=== PATIENT | male | born 1965 | race Caucasian/White ===

== ENCOUNTER 2019-10-18 16:55 | Inpatient (IN) | payer OTHER ==
[2019-10-18 19:34] VITALS: BMI 29.5
--- NOTE | 2019-10-18 20:53 | HP ---
CIWA Score Nausea/Vomitin Muscle Tremors: 4-Moderate,w/Arms Extend Anxiety: 3 Agitation: 1-Slight > Activity Paroxysmal Sweats: 2 Orientation: 1-Uncertain about Date Tacttile Disturbances: 0-None Auditory Disturbances: 0-None Visual Disturbances: 0-None Headache: 3-Moderate CIWA-Ar Total Score: 17 - Admission Criteria OASAS Guidelines: Admission for Medically Managed Detox: Requires at least one of the followin. CIWA greater than 12 2. Seizures within the past 24 hours 3. Delirium tremens within the past 24 hours 4. Hallucinations within the past 24 hours 5. Acute intervention needed for co occurring medical disorder 6. Acute intervention needed for co occurring psychiatric disorder 7. Severe withdrawal that cannot be handled at a lower level of care (continued vomiting, continued diarrhea, abnormal vital signs) requiring intravenous medication and/or fluids 8. Admission ROS S - [facility] Chief Complaint: Alcohol withdrawal symptoms Allergies/Adverse Reactions: Allergies Allergy/AdvReac Type Severity Reaction Status Date / Time No Known Allergies Allergy Verified 10/18/19 19:22 History of Present Illness: 54 years old male with a long history of alcohol dependence is seeking admission to detox. Patient reports that he has been to multiple detox, last at [facility]. He reports medical history of hypertension and Hep. C (treated with interferon) He reports insignificant period of sobriety and denies suicidal ideation at this time. Exam Limitations: No Limitations - Ebola screening Have you traveled outside of the country in the last 21 days: No (N) Have you had contact with anyone from an Ebola affected area: No Do you have a fever: No - Review of Systems Constitutional: Chills, Night Sweats, Changes in sleep EENT: reports: No Symptoms Reported Respiratory: reports: No Symptoms reported Cardiac: reports: No Symptoms Reported GI: reports: Nausea, Poor Appetite, Poor Fluid Intake, Vomiting, Abdominal cramping : reports: No Symptoms Reported Musculoskeletal: reports: Back Pain Integumentary: reports: Dryness, Flushing Neuro: reports: Tremors, Unsteady Gait Endocrine: reports: No Symptoms Reported Hematology: reports: No Symptoms Reported Psychiatric: reports: Judgement Intact, Mood/Affect Appropiate Other Systems: Reviewed and Negative Patient History - Patient Medical History Hx Anemia: No Hx Asthma: No Hx Chronic Obstructive Pulmonary Disease (COPD): No Hx Cancer: No Hx Cardiac Disorders: No Hx Congestive Heart Failure: No Hx Hypertension: Yes (Amlodipine) Hx Hypercholesterolemia: Yes Hx Pacemaker: No HX Cerebrovascular Accident: No Hx Seizures: No Hx Diabetes: No Hx Gastrointestinal Disorders: Yes (Gerd) Hx Liver Disease: Yes (Hep C (treated)) Hx Genitourinary Disorders: No Hx Sexually Transmitted Disorders: No Hx Renal Disease (ESRD): No Hx Thyroid Disease: No Hx Human Immunodeficiency Virus (HIV): No (Negative ) Hx Hepatitis C: Yes (treated) Hx Depression: No Hx Suicide Attempt: No (Denies suicidal ideation at this time) Hx Bipolar Disorder: No Hx Schizophrenia: No - Patient Surgical History Past Surgical History: No - PPD History Previous Implant?: Yes Documented Results: Negative w/o proof Implanted On Prior [facility] Admission?: No PPD to be Administered?: Yes - Reproductive History Patient is a Female of Child Bearing Age (11 -55 yrs old): No (male) - Smoking Cessation Smoking history: Current every day smoker Have you smoked in the past 12 months: Yes Aproximately how many cigarettes per day: 5 Hx Chewing Tobacco Use: No Initiated information on smoking cessation: Yes 'Breaking Loose' booklet given: 10/18/19 - Substance & Tx. History Hx Alcohol Use: Yes Hx Substance Use: No Substance Use Type: Alcohol, Prescribed Hx Substance Use Treatment: Yes ([facility] ) - Substances abused Alcohol Substance route: Oral Frequency: Daily Amount used: liquor- 1 pint, beer- 1 case Age of first use: 10 Date of last use: 10/18/19 Admission Physical Exam S - Vital Signs Vital Signs: Vital Signs - 24 hr 10/18/19 19:29 Temperature 97 F L Pulse Rate 115 H Respiratory 18 Rate Blood Pressure 146/95 - Physical General Appearance: Yes: Moderate Distress, Tremorous, Irritable, Anxious HEENTM: Yes: Within Normal Limits, EOMI, Normal ENT Inspection, Normal Voice, ENEDELIA Respiratory: Yes: Lungs Clear, Normal Breath Sounds, No Respiratory Distress Neck: Yes: Supple Breast: Yes: Breast Exam Deferred Cardiology: Yes: Regular Rhythm, Regular Rate Abdominal: Yes: Normal Bowel Sounds, Soft Genitourinary: Yes: Within Normal Limits Back: Yes: Normal Inspection Musculoskeletal: Yes: Back pain, Muscle Pain Extremities: Yes: Normal Inspection Neurological: Yes: Within Normal Limits, Alert, Normal Mood/Affect Integumentary: Yes: Warm Lymphatic: Yes: Within Normal Limits - Diagnostic (1) Alcohol dependence with withdrawal, uncomplicated Current Visit: Yes Status: Acute (2) Nicotine dependence Current Visit: Yes Status: Chronic Qualifiers: Nicotine product type: cigarettes Substance use status: uncomplicated Qualified Code(s): F17.210 - Nicotine dependence, cigarettes, uncomplicated (3) Hypertension Current Visit: Yes Status: Acute Qualifiers: Hypertension type: essential hypertension Qualified Code(s): I10 - Essential (primary) hypertension (4) Hyperlipidemia Current Visit: Yes Status: Acute Qualifiers: Hyperlipidemia type: unspecified Qualified Code(s): E78.5 - Hyperlipidemia , unspecified (5) GERD (gastroesophageal reflux disease) Current Visit: Yes Status: Chronic Cleared for Admission [facility] - Detox or Rehab S Level of Care: Medically Managed Claeared for Rehab Admission: No (ativan) Breathalyzer - Breathalyzer Breathalyzer: 0.274 Inpatient Rehab Admission - Rehab Decision to Admit Inpatient rehab admission?: No
[2019-10-18] MEDS ORDERED: diazePAM 5 MG TABLET PO PRN (21:12)
[2019-10-18] MEDS ORDERED: MENTHOL/PHENOL 1 EACH UD MM PRN (21:12)
[2019-10-18] MEDS ORDERED: hydrOXYzine PAMOATE 25 MG CAPSULE (FP) PO PRN (21:12)
[2019-10-18] MEDS ORDERED: IBUPROFEN 400 MG TABLET (FP) PO PRN (21:12)
[2019-10-18] MEDS ORDERED: NICOTINE POLACRILEX 2 MG GUM BUC PRN (21:12)
[2019-10-18] MEDS ORDERED: BISMUTH SUBSALICYLATE 524 MG/30 ML UD PO PRN (21:12)
[2019-10-18] MEDS ORDERED: METHOCARBAMOL 500 MG TABLET PO PRN (21:12)
[2019-10-18] MEDS ORDERED: MAGNESIUM CITRATE 300 ML BOTTLE PO PRN (21:12)
[2019-10-18] MEDS ORDERED: ACETAMINOPHEN 325 MG TABLET (FP) PO PRN ×2 (21:12)
[2019-10-18] MEDS ORDERED: MAG HYDROX/AL HYDROX/SIMETH 30 ML UNIT-DOSE CUP PO PRN (21:12)
[2019-10-18] MEDS ORDERED: MAGNESIUM HYDROX 2400MG/30ML ORAL SUSPENSION 30 ML CUP PO PRN (21:12)
[2019-10-18] MEDS: diazePAM 5 MG TABLET PO SCH (22:58)
[2019-10-18] MEDS: THIAMINE HCL 100 MG TABLET (FP) PO SCH (22:58)
[2019-10-18] MEDS: MELATONIN 5 MG TABLETS PO PRN (23:03)
[2019-10-19] MEDS: diazePAM 5 MG TABLET PO SCH ×3 (05:27→22:05)
[2019-10-19 10:10] LABS: HEMATOCRIT 41.4 % (35.4-49); HEMOGLOBIN 14.2 GM/dL (11.7-16.9); MCH 31.7 pg (25.7-33.7); MCHC 34.3 g/dl (32.0-35.9); MEAN CELL VOLUME 92.6 fl (80-96); MEAN PLT VOLUME 7.9 fl (7.5-11.1); PLATELET COUNT 161 K/MM3 (134-434); RBC 4.47 M/mm3 (4.00-5.60); RDW 12.6 % (11.9-15.9); WHITE BLOOD COUNT 3.2 K/mm3 (4.0-10.0)
[2019-10-19] MEDS: amLODIPine BESYLATE 5 MG TABLET (FP) PO SCH (10:13)
[2019-10-19] MEDS: PRENATAL VITAMINS W/ FOLIC ACID TABLET (FP) PO SCH (10:13)
[2019-10-19] MEDS: GABAPENTIN 400 MG CAPSULE PO SCH (10:13)
[2019-10-19] MEDS: NICOTINE 14 MG/24 HOURS TOPICAL PATCH TD SCH (10:16)
[2019-10-19 10:25] LABS: ALBUMIN 4.1 g/dl (3.4-5.0); BILIRUBIN,TOTAL 0.5 mg/dL (0.2-1); CALCIUM 9.3 mg/dL (8.5-10.1); CREATININE 0.7 mg/dL (0.55-1.3); POTASSIUM 3.7 mmol/L (3.5-5.1); TOT PROT 7.3 g/dl (6.4-8.2)
[2019-10-19] MEDS ORDERED: PNEUMOCOCCAL 23 VACCINE 0.5 ML VIAL IM ONE (12:00)
[2019-10-19] MEDS ORDERED: FLU VACCINE QUAD 60 MCG/0.5 ML (MDV 19-20) IM ONE (12:00)
[2019-10-19] MEDS ORDERED: PNEUMOC 13-VAL CONJ-DIP CRM/PF 0.5 ML DISP.SYRIN IM ONE (12:00)
--- NOTE | 2019-10-19 12:44 | PN ---
[facility] CIWA - CIWA Score Nausea/Vomitin-Mild Nausea/No Vomiting Muscle Tremors: 2 Anxiety: 2 Agitation: 2 Paroxysmal Sweats: No Perspiration Orientation: 0-Oriented Tacttile Disturbances: 1-Very Mild Itch/Numbness Auditory Disturbances: 0-None Visual Disturbances: 0-None Headache: 1-Very Mild CIWA-Ar Total Score: 9 S Progress Note (SOAP) Subjective: alert,irritable,anxious,interrupted sleep,pain in the body Objective: 10/19/19 12:42 Vital Signs Temperature 98.8 F 10/19/19 09:15 Pulse Rate 100 H 10/19/19 09:15 Respiratory Rate 18 10/19/19 09:15 Blood Pressure 150/83 10/19/19 09:15 O2 Sat by Pulse Oximetry (%) Laboratory Last Values WBC 3.2 K/mm3 (4.0-10.0) L 10/19/19 08:00 RBC 4.47 M/mm3 (4.00-5.60) 10/19/19 08:00 Hgb 14.2 GM/dL (11.7-16.9) 10/19/19 08:00 Hct 41.4 % (35.4-49) 10/19/19 08:00 MCV 92.6 fl (80-96) 10/19/19 08:00 MCH 31.7 pg (25.7-33.7) 10/19/19 08:00 MCHC 34.3 g/dl (32.0-35.9) 10/19/19 08:00 RDW 12.6 % (11.9-15.9) 10/19/19 08:00 Plt Count 161 K/MM3 (134-434) 10/19/19 08:00 MPV 7.9 fl (7.5-11.1) 10/19/19 08:00 Sodium 139 mmol/L (136-145) 10/19/19 08:00 Potassium 3.7 mmol/L (3.5-5.1) 10/19/19 08:00 Chloride 104 mmol/L (98-107) 10/19/19 08:00 Carbon Dioxide 25 mmol/L (21-32) 10/19/19 08:00 Anion Gap 11 MMOL/L (8-16) 10/19/19 08:00 BUN 12.0 mg/dL (7-18) 10/19/19 08:00 Creatinine 0.7 mg/dL (0.55-1.3) 10/19/19 08:00 Est GFR (CKD-EPI)AfAm 122.27 10/19/19 08:00 Est GFR (CKD-EPI)NonAf 105.50 10/19/19 08:00 Random Glucose 89 mg/dL (74-106) 10/19/19 08:00 Calcium 9.3 mg/dL (8.5-10.1) 10/19/19 08:00 Total Bilirubin 0.5 mg/dL (0.2-1) 10/19/19 08:00 AST 56 U/L (15-37) H 10/19/19 08:00 ALT 52 U/L (13-61) 10/19/19 08:00 Alkaline Phosphatase 77 U/L (45-117) 10/19/19 08:00 Total Protein 7.3 g/dl (6.4-8.2) 10/19/19 08:00 Albumin 4.1 g/dl (3.4-5.0) 10/19/19 08:00 RPR Titer Nonreactive (NONREACTIVE) 10/19/19 08:00 HIV 1&2 Antibody Screen Negative 10/19/19 08:00 HIV P24 Antigen Negative 10/19/19 08:00 Assessment: 10/19/19 12:43 withdrawal symptom Plan: continue detox valium regimen
--- NOTE | 2019-10-19 13:02 | EKG ---
Test Reason : Blood Pressure : / mmHG Vent. Rate : 081 BPM Atrial Rate : 081 BPM P-R Int : 246 ms QRS Dur : 100 ms QT Int : 408 ms P-R-T Axes : 068 002 053 degrees QTc Int : 473 ms SINUS RHYTHM WITH 1ST DEGREE A-V BLOCK LEFT VENTRICULAR HYPERTROPHY NO PREVIOUS ECGS AVAILABLE Confirmed by ADELSO ARTIS MD ([id number]) on 10/19/2019 1:01:45 PM Referred By: MYRNA TROTTER Confirmed By:ADELSO ARTIS MD
[2019-10-19] MEDS: MELATONIN 5 MG TABLETS PO PRN (22:05)
[2019-10-19] MEDS: THIAMINE HCL 100 MG TABLET (FP) PO SCH (22:05)
[2019-10-20] MEDS: diazePAM 5 MG TABLET PO SCH ×2 (05:20→18:07)
[2019-10-20] MEDS: amLODIPine BESYLATE 5 MG TABLET (FP) PO SCH (10:27)
[2019-10-20] MEDS: GABAPENTIN 400 MG CAPSULE PO SCH (10:27)
[2019-10-20] MEDS: PRENATAL VITAMINS W/ FOLIC ACID TABLET (FP) PO SCH (10:27)
[2019-10-20] MEDS: NICOTINE 14 MG/24 HOURS TOPICAL PATCH TD SCH (10:28)
--- NOTE | 2019-10-20 11:14 | PN ---
S CIWA - CIWA Score Nausea/Vomitin-No Nausea/No Vomiting Muscle Tremors: None Anxiety: 2 Agitation: 0-Normal Activity Paroxysmal Sweats: 2 Orientation: 0-Oriented Tacttile Disturbances: 0-None Auditory Disturbances: 0-None Visual Disturbances: 0-None Headache: 0-None Present CIWA-Ar Total Score: 4 [facility] Progress Note (SOAP) Subjective: c/o mild sweats and anxiety. Objective: 10/20/19 11:13 Vital Signs 10/20/19 10/20/19 10/20/19 03:30 06:04 09:17 Temperature 97.1 F L 97 F L Pulse Rate 78 78 Respiratory 16 18 18 Rate Blood Pressure 155/93 161/103 H Laboratory Last Values WBC 3.2 K/mm3 (4.0-10.0) L 10/19/19 08:00 RBC 4.47 M/mm3 (4.00-5.60) 10/19/19 08:00 Hgb 14.2 GM/dL (11.7-16.9) 10/19/19 08:00 Hct 41.4 % (35.4-49) 10/19/19 08:00 MCV 92.6 fl (80-96) 10/19/19 08:00 MCH 31.7 pg (25.7-33.7) 10/19/19 08:00 MCHC 34.3 g/dl (32.0-35.9) 10/19/19 08:00 RDW 12.6 % (11.9-15.9) 10/19/19 08:00 Plt Count 161 K/MM3 (134-434) 10/19/19 08:00 MPV 7.9 fl (7.5-11.1) 10/19/19 08:00 Sodium 139 mmol/L (136-145) 10/19/19 08:00 Potassium 3.7 mmol/L (3.5-5.1) 10/19/19 08:00 Chloride 104 mmol/L (98-107) 10/19/19 08:00 Carbon Dioxide 25 mmol/L (21-32) 10/19/19 08:00 Anion Gap 11 MMOL/L (8-16) 10/19/19 08:00 BUN 12.0 mg/dL (7-18) 10/19/19 08:00 Creatinine 0.7 mg/dL (0.55-1.3) 10/19/19 08:00 Est GFR (CKD-EPI)AfAm 122.27 10/19/19 08:00 Est GFR (CKD-EPI)NonAf 105.50 10/19/19 08:00 Random Glucose 89 mg/dL (74-106) 10/19/19 08:00 Calcium 9.3 mg/dL (8.5-10.1) 10/19/19 08:00 Total Bilirubin 0.5 mg/dL (0.2-1) 10/19/19 08:00 AST 56 U/L (15-37) H 10/19/19 08:00 ALT 52 U/L (13-61) 10/19/19 08:00 Alkaline Phosphatase 77 U/L (45-117) 10/19/19 08:00 Total Protein 7.3 g/dl (6.4-8.2) 10/19/19 08:00 Albumin 4.1 g/dl (3.4-5.0) 10/19/19 08:00 RPR Titer Nonreactive (NONREACTIVE) 10/19/19 08:00 HIV 1&2 Antibody Screen Negative 10/19/19 08:00 HIV P24 Antigen Negative 10/19/19 08:00 Labs noted. Assessment: 10/20/19 11:14 AOX3, in no acute respiratory distress. Full ROM, ambulating in the unit. Withdrawal symptoms. For d/c tomorrow. Plan: continue detox. D/C in AM.
[2019-10-20] MEDS: THIAMINE HCL 100 MG TABLET (FP) PO SCH (22:25)
[2019-10-20] MEDS: MELATONIN 5 MG TABLETS PO PRN (22:26)
[2019-10-21] MEDS ORDERED: diazePAM 5 MG TABLET PO ONE (06:00)
[2019-10-21 06:27] VITALS: BP 154/95; PULSE 85; TEMP 97.4
--- NOTE | 2019-10-21 13:55 | DS ---
[facility] Detox Discharge Summary Admission Date: 10/18/19 Discharge Date: 10/21/19 - History Present History: Alcohol Dependence Additional Comments: 54 years old male admitted on 10/18/19 for alcohol withdrawal sx management treated with valium detox regimen patient tolerated well alert oriented x 3 respiratory clear lung bilaterally on auscultation extremities full range of motion skin warm and dry - Physical Exam Results Vital Signs: Vital Signs Temperature 97.4 F L 10/21/19 06:26 Pulse Rate 85 10/21/19 06:26 Respiratory Rate 16 10/21/19 06:26 Blood Pressure 154/95 10/21/19 06:26 O2 Sat by Pulse Oximetry (%) Pertinent Admission Physical Exam Findings: alcohol withdrawal Laboratory Last Values WBC 3.2 K/mm3 (4.0-10.0) L 10/19/19 08:00 RBC 4.47 M/mm3 (4.00-5.60) 10/19/19 08:00 Hgb 14.2 GM/dL (11.7-16.9) 10/19/19 08:00 Hct 41.4 % (35.4-49) 10/19/19 08:00 MCV 92.6 fl (80-96) 10/19/19 08:00 MCH 31.7 pg (25.7-33.7) 10/19/19 08:00 MCHC 34.3 g/dl (32.0-35.9) 10/19/19 08:00 RDW 12.6 % (11.9-15.9) 10/19/19 08:00 Plt Count 161 K/MM3 (134-434) 10/19/19 08:00 MPV 7.9 fl (7.5-11.1) 10/19/19 08:00 Sodium 139 mmol/L (136-145) 10/19/19 08:00 Potassium 3.7 mmol/L (3.5-5.1) 10/19/19 08:00 Chloride 104 mmol/L (98-107) 10/19/19 08:00 Carbon Dioxide 25 mmol/L (21-32) 10/19/19 08:00 Anion Gap 11 MMOL/L (8-16) 10/19/19 08:00 BUN 12.0 mg/dL (7-18) 10/19/19 08:00 Creatinine 0.7 mg/dL (0.55-1.3) 10/19/19 08:00 Est GFR (CKD-EPI)AfAm 122.27 10/19/19 08:00 Est GFR (CKD-EPI)NonAf 105.50 10/19/19 08:00 Random Glucose 89 mg/dL (74-106) 10/19/19 08:00 Calcium 9.3 mg/dL (8.5-10.1) 10/19/19 08:00 Total Bilirubin 0.5 mg/dL (0.2-1) 10/19/19 08:00 AST 56 U/L (15-37) H 10/19/19 08:00 ALT 52 U/L (13-61) 10/19/19 08:00 Alkaline Phosphatase 77 U/L (45-117) 10/19/19 08:00 Total Protein 7.3 g/dl (6.4-8.2) 10/19/19 08:00 Albumin 4.1 g/dl (3.4-5.0) 10/19/19 08:00 RPR Titer Nonreactive (NONREACTIVE) 10/19/19 08:00 HIV 1&2 Antibody Screen Negative 10/19/19 08:00 HIV P24 Antigen Negative 10/19/19 08:00 lab noted - Treatment Hospital Course: Detox Protocol Followed, Detoxed Safely, Responded well, Discharged Condition Good, Rehab Referral Accepted Patient has Accepted a Rehab Referral to: community support approach - Medication Discharge Medications: Ambulatory Orders Amlodipine Besylate [Norvasc -] 5 mg PO DAILY 10/18/19 Gabapentin [Neurontin -] 400 mg PO DAILY 10/18/19 Hydrocodone/Acetaminophen [Hydrocodone-Acetamin 5-325 mg] 1 each PO DAILY Omeprazole 40 mg PO DAILY 10/18/19 Zolpidem Tartrate [Ambien] 10 mg PO HS 10/18/19 - Diagnosis (1) Alcohol dependence with withdrawal, uncomplicated Status: Acute (2) Hypertension Status: Chronic Qualifiers: Hypertension type: essential hypertension Qualified Code(s): I10 - Essential (primary) hypertension (3) GERD (gastroesophageal reflux disease) Status: Chronic Qualifiers: Esophagitis presence: without esophagitis Qualified Code(s): K21.9 - Gastro -esophageal reflux disease without esophagitis (4) Nicotine dependence Status: Acute Qualifiers: Nicotine product type: cigarettes Substance use status: in withdrawal Qualified Code(s): F17.213 - Nicotine dependence, cigarettes, with withdrawal - AMA Did Patient Leave Against Medical Advice: No CIWA Score - CIWA Score Nausea/Vomitin-No Nausea/No Vomiting Muscle Tremors: None Anxiety: 1-Mildly Anxious Agitation: 0-Normal Activity Paroxysmal Sweats: 1-Minimal Palms Moist Orientation: 0-Oriented Tacttile Disturbances: 0-None Auditory Disturbances: 0-None Visual Disturbances: 0-None Headache: 0-None Present CIWA-Ar Total Score: 2
== END 2019-10-21 09:09 | disposition home or self-care (01) | DRG 775 ==
LOC: YASAS 16:55 → Y3N 21:33
PROVIDERS: ADMIT Allergy & Immunology; ATTEND Allergy & Immunology
PROC: HZ2ZZZZ Detoxification Services for Substance Abuse Treatment (ICD-10-PCS; principal; 2019-10-18)
DX: F10.230 Alcohol dependence with withdrawal, uncomplicated (principal); F17.213 Nicotine dependence, cigarettes, with withdrawal; I10 Essential (primary) hypertension; K21.9 Gastro-esophageal reflux disease without esophagitis; E78.00 Pure hypercholesterolemia, unspecified; Z86.19 Personal history of other infectious and parasitic diseases
CPT/HCPCS: 36415; 80053; 85027; 86593; 87389; 90732; 93005; 93010; G0008; G0009; Q2036